=== PATIENT | female | born 1960 | race Caucasian/White ===

== ENCOUNTER 2017-04-05 15:04 | Emergency (ER) | payer MEDICARE, MEDICAID ==
[~2017-04-05] VITALS: Ht 165.1 cm; Wt 113.9 kg
[~2017-04-05 15:04] MED LIST: ALBU2.5V NEB; ASPI-496; AZIT250T PO; Albuterol Sulfate INH; CELE200C PO; CLON-365 PO; CLON2TAB16 PO; CLOP75TA PO; CLOP75TA22 PO; Combivent INH; DOCU100C50; DULO30CA2 PO; FLUT1DIS5 IH; FURO-92 PO; FURO-93 PO; FURO40TA6 PO; GABA300C10 PO; GABA300T2 PO; Ipratropium/Albuterol Sulfate NPPB; LEVO75TA PO; LEVO75TA5 PO; LEVO75TA8 PO; LISI-170 PO; MEGE400O PO; METF10002 PO; METF500T4 PO; METO50TA82 PO; METO5TAB5 PO; MONT10TA6 PO; MONT10TA9 PO; NAPR550T3 PO; OMEP-110 PO; OMEP40CA6 PO; ONDA-39 PO; ONDA4TAB10 PO; OXYC15TA PO; OXYC15TA60 PO; OXYC1TAB8 PO; OXYM10TA PO; POTA10TA11 PO; POTA20TA14 PO; PRAV40TA PO; PRAV40TA2 PO; PRAZ1CAP2 PO; PRED20TA PO; PROM25TA10 PO; SULF1TAB24 PO; SULFAMETHOXAZOLE PO; TIOT18CA INH; TIZA2CAP PO; TIZA2TAB PO; TRAM-28 PO; TRAZ100T15 PO; TRAZ50TA18 PO; TRIMETHOPRIM PO
[2017-04-05 15:14] VITALS: BP 112/70
== END 2017-04-05 16:54 | disposition home or self-care (01) ==
LOC: ED 16:48
DX: S00.83XA Contusion of other part of head, initial encounter (principal); H11.31 Conjunctival hemorrhage, right eye; I25.10 Atherosclerotic heart disease of native coronary artery without angina pectoris; I12.9 Hypertensive chronic kidney disease with stage 1 through stage 4 chronic kidney disease, or unspecified chronic kidney disease; N18.9 Chronic kidney disease, unspecified; K21.9 Gastro-esophageal reflux disease without esophagitis; I11.0 Hypertensive heart disease with heart failure; I50.9 Heart failure, unspecified; E66.9 Obesity, unspecified; J44.9 Chronic obstructive pulmonary disease, unspecified; E11.9 Type 2 diabetes mellitus without complications; W20.8XXA Other cause of strike by thrown, projected or falling object, initial encounter; Y93.89 Activity, other specified; Y92.89 Other specified places as the place of occurrence of the external cause; Y99.8 Other external cause status
CPT/HCPCS: 70486

== ENCOUNTER → 2021-04-04 | Outpatient (CLI) | payer MEDICARE, MEDICAID ==
[~2021-04-04] MED LIST changes: -CLON-365 PO; +CLON1TAB11 PO; -CLOP75TA22 PO; +CLOP75TA52 PO; +METF500T17 PO; -METF500T4 PO; +MONT10TA17 PO; -MONT10TA9 PO; +NAPR-850 PO; -NAPR550T3 PO; +OMEP40CA42 PO; -OMEP40CA6 PO; -ONDA-39 PO; +ONDA-89 PO; -OXYC15TA PO; +OXYC15TA3 PO; +SULF-23 PO; -SULF1TAB24 PO; +TIZA-106 PO; -TIZA2TAB PO; -TRAM-28 PO; +TRAM-47 PO; +TRAZ-175 PO; -TRAZ100T15 PO; -TRAZ50TA18 PO; +TRAZ50TA66 PO
[2021-04-04 16:37] LABS: ANION GAP 3 mmol/L (5-15); CHLORIDE 97 mmol/L (98-107); CREATININE 0.72 mg/dL (0.55-1.02)
== END | disposition home or self-care (01) ==
LOC: RAD 15:39
PROVIDERS: ATTEND Student in an Organized Health Care Education/Training Program
DX: J98.11 Atelectasis (principal); J98.4 Other disorders of lung; R60.9 Edema, unspecified; E87.1 Hypo-osmolality and hyponatremia; M41.84 Other forms of scoliosis, thoracic region
CPT/HCPCS: 36415; 71046; 80048